=== PATIENT | female | born 1940 | race Caucasian/White ===

== ENCOUNTER 2017-01-04 15:27 | Inpatient (IN) ==
--- NOTE | 2017-01-04 16:40 | Emergency Department Note ---
Disposition Clinical Impression: Leukocytosis Disposition: Admitted As Inpatient Condition: Fair Referrals: NO,PCP [Primary Care Provider] - Forms: Work/School Release, ED Satisfaction Letter Time of Disposition: 18:00 Recheck wound or abnormal lab - General Chief Complaint: ED General Medical Stated Complaint: high blood sugar Source: patient Limitations: no limitations Nursing Notes Reviewed: Yes Vital Signs Reviewed: Yes - History of Present Illness HPI Narrative: Miss Mathias was at the urgent care today for the second time in 5 days. 5 days ago she received capMist and Bactrim for an upper respiratory infection. She went back she was feeling somewhat dizzy wondering if perhaps cap Mist was culprit. They checked her sugar there and it was 424 and sent her here to the emergency department. She was last to the doctor for a sugar check about 4 years ago for an ankle issue. No frequency of urination but the urine has been "dark" for the last few days. No dysuria. No nausea vomiting diarrhea. She is feeling otherwise fine and is here for evaluation of the sugar. She was not given any insulin at the urgent care before coming here. - Related Data Previous Rx's Medication Instructions Recorded Guaifenesin/Dm/Pseudoephedrine 1 tab PO QID #20 tablet 12/30/16 [Capmist Dm Tablet] Sulfamethoxazole/Trimeth DS 1 each PO BID #20 tablet 12/30/16 [Bactrim DS] Allergies Allergy/AdvReac Type Severity Reaction Status Date / Time No Known Allergies Allergy Verified 12/30/16 12:07 All systems ED: reviewed and negative except as stated. Review of Systems: As Per HPI Constitutional: Denies: fever, chills Eyes: Denies: vision change ENT ED: Reports: congestion. Denies: ear pain, throat pain, dysphagia Cardiovascular: Denies: chest pain, palpitations, dyspnea on exertion Respiratory: Denies: cough, dyspnea, sputum production Gastrointestinal: Denies: abdominal pain, nausea, vomiting, diarrhea, melena, hematochezia Genitourinary: Denies: urgency, dysuria, frequency, hematuria Musculoskeletal: Denies: myalgia Neurological: Denies: headache Endocrine: Denies: fatigue Past Medical History - Past Medical History Medical history: Reports: no medical history Psychiatric history: Reports: no psych history - Social History Smoking Status: Never smoker Smokeless Tobacco Status: No Alcohol use: Reports: none Drug use: Reports: none Physical Exam - General Limitations: no limitations General appearance: alert, in no apparent distress - Head Head exam: normocephalic - Eye Eye exam: Present: normal appearance. Absent: scleral icterus - ENT ENT exam: normal oropharynx, mucous membranes moist - Neck Neck exam: Present: normal inspection. Absent: lymphadenopathy - Chest Chest inspection: Present: normal inspection, symmetric chest wall rise - Respiratory Respiratory exam: Present: normal lung sounds bilaterally. Absent: respiratory distress, wheezes, stridor - Cardiovascular Cardiovascular exam: Present: regular rate, normal rhythm, normal heart sounds. Absent: systolic murmur, diastolic murmur - Abdominal Exam Abdominal exam: Present: soft, Non-Tender, normal bowel sounds. Absent: distention, guarding, rebound, rigidity Abdominal tenderness: Absent: RUQ, epigastrium - Extremities Exam Extremities exam: Present: normal inspection. Absent: pedal edema - Neurological Exam Neurological exam: Present: alert - Psychiatric Psychiatric exam: Present: normal affect, normal mood - Skin Skin exam: Present: warm, dry, intact Course Vital Signs Temperature 98.5 F 01/04/17 15:39 Pulse Rate 104 01/04/17 15:39 Respiratory Rate 18 01/04/17 15:39 Blood Pressure 134/83 01/04/17 15:39 O2 Sat by Pulse Oximetry 96 01/04/17 15:39 Temperature 98.5 F 01/04/17 15:39 Pulse Rate 104 01/04/17 15:39 Respiratory Rate 18 01/04/17 15:39 Blood Pressure 134/83 01/04/17 15:39 O2 Sat by Pulse Oximetry 96 01/04/17 15:39 Oxygen Delivery Oxygen Delivery Room Air Recheck wound or abnormal lab - [facility] Narrative Medical decision making narrative: Leukocytosis. She has not been on prednisone and has no sign of serious infection however this is markedly elevated with a left shift. No obvious findings in urine or chest x-ray to account for this. Lab abnormalities include hepatic function although she is not tender on exam in this region of her abdomen. Lactate is up somewhat as well and besides the slight increase in heart rate she appears well and is not hypotensive. We will begin empiric anabiotic's in the form of Zosyn 4.5 g every 6 hours. Blood cultures are pending at the time of this dictation. Again she appears well but it might be prudent to have her come into the hospital for empiric treatment. Hyperglycemia. 424 by report at the urgent care. By the time she got here she was in the mid 300s. After a 500 mL bolus she was down to the mid 200s without any insulin. This could be a result response to underlying infection as above. We will recheck her potassium as it was 3.8 initially. Now that the sugar has fallen I would like to ensure that it is not decreased abnormally. With admission we will check sugars before meals at bedtime and do sliding scale as needed. I discussed the case with the covering hospitalist and explored some treatment options. Initially it was thought that she could use some diabetic teaching however her sugar is beginning to resolve with just serial checks and IV hydration. He was also thought that she might benefit from some advanced imaging which we do not have here at [place] over the weekend. However she is not tender to palpation over the epigastrium or the right upper quadrant. As above we will begin empiric antibiotics and continue to monitor her here [place]. Miss Mathias is in agreement with the rationale for staying in the hospital. She is currently in good condition awaiting transfer to the floor. - Lab Data Lab results reviewed: Yes I reviewed the patient's lab results. Result diagrams: 01/04/17 16:12 01/04/17 16:12 Lab Results 01/04/17 01/04/17 01/04/17 Range/Units 15:40 16:12 16:12 WBC 21.2 H (4.3-11.1) K/mcL RBC 3.87 (3.82-4.97) M/mcL Hgb 11.5 (11.5-15.4) g/dL Hct 32.4 L (35.3-44.9) % MCV 83.7 (83.0-100.0) fL MCH 29.7 (28.0-33.3) pg MCHC 35.5 (31.6-35.5) g/dL RDW 14.3 (11.5-14.5) % Plt Count 350 (140-400) K/mcL MPV 11.2 (9.4-12.4) fL Immature Gran % 3.6 (0-4) % Seg Neutrophils % 82.8 % Lymphocytes % 7.1 % Monocytes % 6.2 % Eosinophils % 0.0 % Basophils % 0.3 % Neutrophils # 17.6 H (1.6-8.9) K/mcL Lymphocytes # 1.5 (0.6-4.6) K/mcL Monocytes # 1.3 (0.0-1.3) K/mcL Eosinophils # 0.0 (0.0-0.6) K/mcL Basophils # 0.1 (0.0-0.2) K/mcL VBG pH (7.32-7.42) pH Units VBG pCO2 (41-51) mmHg VBG pO2 (25-40) mmHg VBG HCO3 (21-27) mEq/L VBG Lactic Acid (0.5-2.2) mmol/L Sodium 129 L (136-145) mEq/L Potassium 3.8 (3.5-4.5) mEq/L Chloride 94 L (98-109) mEq/L Carbon Dioxide 23 (19-29) mEq/L BUN 18 (7-20) mg/dL Creatinine 0.91 (0.57-1.11) mg/dL Est GFR ( Amer) > 60 (> 60) Est GFR (Non-Af Amer) 60 (> 60) BUN/Creatinine Ratio 20 (6-26) Glucose 336 H (70-99) mg/dL POC Glucose 344 H (58-89) Calculated Osmolality 283 (280-300) Calcium 8.8 (8.6-10.8) mg/dL Phosphorus 2.4 (2.3-4.7) mg/dL Magnesium 1.8 (1.6-2.6) mg/dL Total Bilirubin 1.8 H (0.2-1.2) mg/dL AST 91 H (5-34) Units/L ALT 108 H (0-55) Units/L Alkaline Phosphatase 406 H (38-126) Units/L Serum Total Protein 7.2 (6.0-8.3) g/dL Albumin 1.8 L (3.5-5.0) g/dL Globulin 5.4 H (2.4-3.5) g/dL Albumin/Globulin Ratio 0.3 L (1.1-2.2) Beta-Hydroxybutyric Acd (0.02-0.27) mmol/L Urine Color (Yellow) Urine Clarity (Clear) Urine pH (5.0-8.0) pH Units Ur Specific [place] (1.010-1.025) Urine Protein (Neg-Trace) mg/dL Urine Glucose (UA) (Normal) mg/dL Urine Ketones (Negative) mg/dL Urine Blood (Negative) Urine Nitrite (Negative) Urine Bilirubin (Negative) Urine Urobilinogen (Normal) mg/dL Ur Leukocyte Esterase (Negative) Urine Microscopic RBC (0-3) per hpf Urine Microscopic WBC (0-3) per hpf Ur Squamous Epith Cells (None-Few) per lpf Urine Bacteria (None-Few) per hpf Ur Culture Indicated? (NO) 01/04/17 01/04/17 01/04/17 Range/Units 16:12 16:12 16:12 WBC (4.3-11.1) K/mcL RBC (3.82-4.97) M/mcL Hgb (11.5-15.4) g/dL Hct (35.3-44.9) % MCV (83.0-100.0) fL MCH (28.0-33.3) pg MCHC (31.6-35.5) g/dL RDW (11.5-14.5) % Plt Count (140-400) K/mcL MPV (9.4-12.4) fL Immature Gran % (0-4) % Seg Neutrophils % % Lymphocytes % % Monocytes % % Eosinophils % % Basophils % % Neutrophils # (1.6-8.9) K/mcL Lymphocytes # (0.6-4.6) K/mcL Monocytes # (0.0-1.3) K/mcL Eosinophils # (0.0-0.6) K/mcL Basophils # (0.0-0.2) K/mcL VBG pH 7.45 H (7.32-7.42) pH Units VBG pCO2 37.5 L (41-51) mmHg VBG pO2 36.4 (25-40) mmHg VBG HCO3 26.1 (21-27) mEq/L VBG Lactic Acid 3.0 H (0.5-2.2) mmol/L Sodium (136-145) mEq/L Potassium (3.5-4.5) mEq/L Chloride (98-109) mEq/L Carbon Dioxide (19-29) mEq/L BUN (7-20) mg/dL Creatinine (0.57-1.11) mg/dL Est GFR ( Amer) (> 60) Est GFR (Non-Af Amer) (> 60) BUN/Creatinine Ratio (6-26) Glucose (70-99) mg/dL POC Glucose (58-89) Calculated Osmolality (280-300) Calcium (8.6-10.8) mg/dL Phosphorus (2.3-4.7) mg/dL Magnesium (1.6-2.6) mg/dL Total Bilirubin (0.2-1.2) mg/dL AST (5-34) Units/L ALT (0-55) Units/L Alkaline Phosphatase (38-126) Units/L Serum Total Protein (6.0-8.3) g/dL Albumin (3.5-5.0) g/dL Globulin (2.4-3.5) g/dL Albumin/Globulin Ratio (1.1-2.2) Beta-Hydroxybutyric Acd 0.20 (0.02-0.27) mmol/L Urine Color (Yellow) Urine Clarity (Clear) Urine pH (5.0-8.0) pH Units Ur Specific [place] (1.010-1.025) Urine Protein (Neg-Trace) mg/dL Urine Glucose (UA) (Normal) mg/dL Urine Ketones (Negative) mg/dL Urine Blood (Negative) Urine Nitrite (Negative) Urine Bilirubin (Negative) Urine Urobilinogen (Normal) mg/dL Ur Leukocyte Esterase (Negative) Urine Microscopic RBC (0-3) per hpf Urine Microscopic WBC (0-3) per hpf Ur Squamous Epith Cells (None-Few) per lpf Urine Bacteria (None-Few) per hpf Ur Culture Indicated? (NO) 01/04/17 Range/Units 17:10 WBC (4.3-11.1) K/mcL RBC (3.82-4.97) M/mcL Hgb (11.5-15.4) g/dL Hct (35.3-44.9) % MCV (83.0-100.0) fL MCH (28.0-33.3) pg MCHC (31.6-35.5) g/dL RDW (11.5-14.5) % Plt Count (140-400) K/mcL MPV (9.4-12.4) fL Immature Gran % (0-4) % Seg Neutrophils % % Lymphocytes % % Monocytes % % Eosinophils % % Basophils % % Neutrophils # (1.6-8.9) K/mcL Lymphocytes # (0.6-4.6) K/mcL Monocytes # (0.0-1.3) K/mcL Eosinophils # (0.0-0.6) K/mcL Basophils # (0.0-0.2) K/mcL VBG pH (7.32-7.42) pH Units VBG pCO2 (41-51) mmHg VBG pO2 (25-40) mmHg VBG HCO3 (21-27) mEq/L VBG Lactic Acid (0.5-2.2) mmol/L Sodium (136-145) mEq/L Potassium (3.5-4.5) mEq/L Chloride (98-109) mEq/L Carbon Dioxide (19-29) mEq/L BUN (7-20) mg/dL Creatinine (0.57-1.11) mg/dL Est GFR ( Amer) (> 60) Est GFR (Non-Af Amer) (> 60) BUN/Creatinine Ratio (6-26) Glucose (70-99) mg/dL POC Glucose (58-89) Calculated Osmolality (280-300) Calcium (8.6-10.8) mg/dL Phosphorus (2.3-4.7) mg/dL Magnesium (1.6-2.6) mg/dL Total Bilirubin (0.2-1.2) mg/dL AST (5-34) Units/L ALT (0-55) Units/L Alkaline Phosphatase (38-126) Units/L Serum Total Protein (6.0-8.3) g/dL Albumin (3.5-5.0) g/dL Globulin (2.4-3.5) g/dL Albumin/Globulin Ratio (1.1-2.2) Beta-Hydroxybutyric Acd (0.02-0.27) mmol/L Urine Color Yellow (Yellow) Urine Clarity Slightly Cloudy A (Clear) Urine pH 5.5 (5.0-8.0) pH Units Ur Specific [place] 1.020 (1.010-1.025) Urine Protein Trace (Neg-Trace) mg/dL Urine Glucose (UA) >=1000 H (Normal) mg/dL Urine Ketones Negative (Negative) mg/dL Urine Blood Negative (Negative) Urine Nitrite Negative (Negative) Urine Bilirubin Small H (Negative) Urine Urobilinogen Normal (Normal) mg/dL Ur Leukocyte Esterase Negative (Negative) Urine Microscopic RBC 0-3 (0-3) per hpf Urine Microscopic WBC 0-3 (0-3) per hpf Ur Squamous Epith Cells Many H (None-Few) per lpf Urine Bacteria Few (None-Few) per hpf Ur Culture Indicated? NO (NO) - Radiology Data Radiology results reviewed: Yes I reviewed the patient's radiology results.
[2017-01-04 16:41] LABS: Basophils # 0.1 K/mcL (0.0-0.2); Basophils % 0.3 %; Hematocrit 32.4 % (35.3-44.9); Hemoglobin 11.5 g/dL (11.5-15.4); Immature Granulocytes % 3.6 % (0-4); Lymphocytes # 1.5 K/mcL (0.6-4.6); Lymphocytes % 7.1 %; Mean Corpuscular HGB Conc 35.5 g/dL (31.6-35.5); Mean Corpuscular Hemoglobin 29.7 pg (28.0-33.3); Mean Corpuscular Volume 83.7 fL (83.0-100.0); Mean Platelet Volume 11.2 fL (9.4-12.4); Monocytes # 1.3 K/mcL (0.0-1.3); Monocytes % 6.2 %; Platelet Count 350 K/mcL (140-400); Red Blood Count 3.87 M/mcL (3.82-4.97); Red Cell Distribution Width 14.3 % (11.5-14.5); Segmented Neutrophils % 82.8 %
[2017-01-04 16:50] LABS: Alanine Aminotransferase 108 Units/L (0-55); Albumin/Globulin Ratio 0.3 (1.1-2.2); Alkaline Phosphatase 406 Units/L (38-126); Aspartate Amino Transferase 91 Units/L (5-34); BUN/Creatinine Ratio 20 (6-26); Bilirubin,Total 1.8 mg/dL (0.2-1.2); Blood Urea Nitrogen 18 mg/dL (7-20); Calcium 8.8 mg/dL (8.6-10.8); Carbon Dioxide 23 mEq/L (19-29); Chloride 94 mEq/L (98-109); Globulin 5.4 g/dL (2.4-3.5); Glucose 336 mg/dL (70-99); Magnesium 1.8 mg/dL (1.6-2.6); Osmolality,Calculated 283 (280-300); Phosphorous 2.4 mg/dL (2.3-4.7); Potassium 3.8 mEq/L (3.5-4.5); Sodium 129 mEq/L (136-145); Total Protein 7.2 g/dL (6.0-8.3); eGFR For African Americans > 60 (> 60); eGFR For Non-African Americans 60 (> 60)
[2017-01-04 16:51] LABS: VBG HCO3 26.1 mEq/L (21-27); VBG PCO2 37.5 mmHg (41-51); VBG PH 7.45 pH Units (7.32-7.42); VBG PO2 36.4 mmHg (25-40)
[2017-01-04] MEDS ORDERED: 0.9 % Sodium Chloride 500 ML IVC ONE (16:55)
[2017-01-04 16:58] LABS: Neutrophils # 17.6 K/mcL (1.6-8.9)
[2017-01-04 16:59] LABS: Albumin 1.8 g/dL (3.5-5.0)
[2017-01-04 17:25] LABS: Bilirubin,Urine Small (Negative); Blood,Urine Negative (Negative); Clarity,Urine Slightly Cloudy (Clear); Color,Urine Yellow (Yellow); Glucose,Urine (UA) >=1000 mg/dL (Normal); Ketones,Urine Negative (Negative); Leukocyte Esterase,Urine Negative (Negative); Nitrite,Urine Negative (Negative); PH,Urine 5.5 pH Units (5.0-8.0); Protein,Urine Trace mg/dL (Neg-Trace); Urobilinogen,Urine Normal (Normal)
[2017-01-04 17:36] LABS: Bacteria,Urine Few per hpf (None-Few); RBC,Urine 0-3 per hpf (0-3); Squamous Epithelial Cell,Urine Many per lpf (None-Few); WBC,Urine 0-3 per hpf (0-3)
[2017-01-04] MEDS ORDERED: Piperacillin/Tazobactam 4.5 GM in D5% in Water (Mini-Bag+) 100 ML IVPB ONE ×2 (18:45→19:13)
[2017-01-04 19:05] LABS: Amylase 32 Units/L (25-125); Lipase 26 Units/L (8-78)
[2017-01-04] MEDS ORDERED: Ibuprofen 400 MG TABLET PO PRN (19:13)
[2017-01-04] MEDS ORDERED: Naloxone 0.4 MG/ML INJ IVP PRN (19:13)
[2017-01-04] MEDS ORDERED: *HR* Enoxaparin 40 MG/0.4 ML SYRINGE SQ ONE (19:13)
[2017-01-04] MEDS ORDERED: Ondansetron 4 MG/2 ML VIAL IVP PRN (19:13)
[2017-01-04] MEDS ORDERED: MOM Conc 10 ML UD.LIQ PO PRN (19:13)
[2017-01-04] MEDS ORDERED: Dextrose Gel 15 GM PO PRN ×2 (19:54)
[2017-01-04] MEDS ORDERED: D5% in Water 1,000 ML IVC PRN (19:54)
[2017-01-04] MEDS ORDERED: *HR* Dextrose 50 % in Water (Syg) 50 ML SYRINGE IVP PRN (19:54)
[2017-01-04] MEDS: 0.9 % Sodium Chloride 1,000 ML IVC SCH (20:35)
[2017-01-04 20:53] LABS: BUN/Creatinine Ratio 21 (6-26); Blood Urea Nitrogen 16 mg/dL (7-20); Calcium 8.1 mg/dL (8.6-10.8); Carbon Dioxide 22 mEq/L (19-29); Chloride 98 mEq/L (98-109); Glucose 248 mg/dL (70-99); Osmolality,Calculated 277 (280-300); Potassium 3.5 mEq/L (3.5-4.5); Sodium 129 mEq/L (136-145); eGFR For African Americans > 60 (> 60); eGFR For Non-African Americans > 60 (> 60)
[2017-01-04] MEDS: Insulin LISPRO 300 UNITS/3 ML VIAL SQ SCH (22:57)
[2017-01-05] MEDS: Piperacillin/Tazobactam 3.375 GM in D5% in Water (Mini-Bag+) 100 ML IVPB SCH ×3 (03:03→18:42)
[2017-01-05 05:33] LABS: Basophils # 0.1 K/mcL (0.0-0.2); Basophils % 0.3 %; Eosinophils % 0.2 %; Hemoglobin 8.9 g/dL (11.5-15.4); Immature Granulocytes % 2.8 % (0-4); Lymphocytes # 1.7 K/mcL (0.6-4.6); Lymphocytes % 9.2 %; Mean Corpuscular HGB Conc 35.6 g/dL (31.6-35.5); Mean Corpuscular Hemoglobin 29.5 pg (28.0-33.3); Mean Corpuscular Volume 82.8 fL (83.0-100.0); Monocytes # 1.4 K/mcL (0.0-1.3); Monocytes % 7.2 %; Neutrophils # 15.2 K/mcL (1.6-8.9); Platelet Count 319 K/mcL (140-400); Red Blood Count 3.02 M/mcL (3.82-4.97); Segmented Neutrophils % 80.3 %
[2017-01-05 05:45] LABS: Alanine Aminotransferase 82 Units/L (0-55); Albumin/Globulin Ratio 0.3 (1.1-2.2); Alkaline Phosphatase 326 Units/L (38-126); Aspartate Amino Transferase 79 Units/L (5-34); BUN/Creatinine Ratio 23 (6-26); Bilirubin,Total 1.6 mg/dL (0.2-1.2); Blood Urea Nitrogen 17 mg/dL (7-20); Calcium 7.6 mg/dL (8.6-10.8); Carbon Dioxide 22 mEq/L (19-29); Chloride 100 mEq/L (98-109); Globulin 4.4 g/dL (2.4-3.5); Glucose 194 mg/dL (70-99); Osmolality,Calculated 279 (280-300); Potassium 3.7 mEq/L (3.5-4.5); Sodium 131 mEq/L (136-145); Total Protein 5.9 g/dL (6.0-8.3); eGFR For African Americans > 60 (> 60); eGFR For Non-African Americans > 60 (> 60)
[2017-01-05 05:56] LABS: Albumin 1.5 g/dL (3.5-5.0)
[2017-01-05] MEDS: 0.9 % Sodium Chloride 1,000 ML IVC SCH (07:50)
[2017-01-05] MEDS: Insulin LISPRO 300 UNITS/3 ML VIAL SQ SCH ×4 (08:54→20:37)
--- NOTE | 2017-01-05 13:54 | Internal Med History&Physical ---
Date of Encounter: 02/19/17 Time of Encounter: 13:51 Assessment and Plan (1) Hyperglycemia Status: Inactive No low diabetes which is being addressed. A1c is spent (2) Dizziness Status: Inactive Clear about the dizziness was related to orthostasis or what we will follow (3) Leukocytosis Status: Acute And white count coming down off follow the Qualifiers: Leukocytosis type: unspecified Qualified Code(s): D72.829 - Elevated white blood cell count, unspecified Internal Medicine - H&P: HPI Chief complaint: Lo/Ovral diabetes Admitted From: Emergency Dept Plans for Post Hospital Care: Home History of present illness: Ms. Mathias is a 76 year old female She will had high blood sugars and a routine check in the emergency room. The patient was unaware of being diabetic or having problems with blood sugars. She was admitted so we can educator start on medication and then set up follow- up appointments as appropriate and get her primary care physician which she does not have Past Med Surg Social Fam HX - Past Medical History Medical history: no medical history Psychiatric history: no psych history - Past Surgical History Surgical History: , cholecystectomy, orthopedic, other - Social History Smoking Status: Never smoker Smokeless Tobacco Status: No Alcohol use: none Drug use: none - Family History Mother History Unknown: Yes Father History Unknown: Yes Internal Medicine - H&P: Meds Guaifenesin/Dm/Pseudoephedrine [Capmist Dm Tablet] 1 tab PO QID #20 tablet 12/30 [Rx] Sulfamethoxazole/Trimeth DS [Bactrim DS] 1 each PO BID #20 tablet 12/30/16 [Rx] Multivitamin [Multi-Day Vitamins] 1 each PO DAILY 01/05/17 [History] 3 Allergy/AdvReac Type Severity Reaction Status Date / Time No Known Allergies Allergy Verified 12/30/16 12:07 All Systems PM: A 10-system review of systems was performed and is negative for pertinent findings except as documented above in the HPI. - Constitutional Vitals: Temp Pulse Resp BP Pulse Ox 98.6 F 101 17 157/69 96 01/05/17 11:53 01/05/17 11:53 01/05/17 11:53 01/05/17 11:53 01/05/17 11:53 - Head Head exam: Present: atraumatic, normocephalic - Respiratory Respiratory exam: Present: CTAB. Absent: accessory muscle use, rales, rhonchi, wheezes - Cardiovascular Cardiovascular exam: Present: RRR, +S1, +S2. Absent: diastolic murmur, gallop, rubs, systolic murmur - GI/Abdominal GI/Abdominal exam: Present: normal bowel sounds, soft, no peritoneal signs. Absent: distended, tenderness Internal Med - H&P Results - Labs CBC & Chem 7: 01/07/17 05:05 01/07/17 05:05 Labs: Short CBC 01/05/17 Range/Units 04:50 WBC 18.9 H (4.3-11.1) K/mcL Hgb 8.9 L D (11.5-15.4) g/dL Hct 25.0 L (35.3-44.9) % Plt Count 319 (140-400) K/mcL Neutrophils # 15.2 H (1.6-8.9) K/mcL BMP 01/04/17 01/05/17 20:30 04:50 Sodium 129 L 131 L Potassium 3.5 3.7 Chloride 98 100 Carbon Dioxide 22 22 BUN 16 17 Creatinine 0.75 0.75 Glucose 248 H 194 H Calcium 8.1 L 7.6 L Liver Function 01/05/17 Range/Units 04:50 Total Bilirubin 1.6 H (0.2-1.2) mg/dL AST 79 H (5-34) Units/L ALT 82 H (0-55) Units/L Alkaline Phosphatase 326 H (38-126) Units/L Albumin 1.5 L (3.5-5.0) g/dL Patient is somewhat anemic and her white count was up this morning's is down about 3000. Sodium Sulo I think these are all dilutional here and then we will follow her white count. In addition her blood sugar this morning last night was 248 this morning was 194 and medications been started. She had total bilirubin that was somewhat elevated and AST that is mildly elevated disablement ALT alkaline phosphatase is up in the albumin is low. Patient does not have a gallbladder.
[2017-01-05] MEDS: *HR* Metformin 500 MG TABLET PO SCH (16:55)
[2017-01-06] MEDS: Piperacillin/Tazobactam 3.375 GM in D5% in Water (Mini-Bag+) 100 ML IVPB SCH ×3 (03:39→20:34)
[2017-01-06] MEDS: *HR* Enoxaparin 40 MG/0.4 ML SYRINGE SQ SCH (05:34)
[2017-01-06 05:41] LABS: Basophils % 0.2 %; Eosinophils # 0.1 K/mcL (0.0-0.6); Eosinophils % 0.4 %; Hematocrit 25.7 % (35.3-44.9); Immature Granulocytes % 3.1 % (0-4); Lymphocytes # 1.9 K/mcL (0.6-4.6); Lymphocytes % 9.4 %; Mean Corpuscular Hemoglobin 29.3 pg (28.0-33.3); Mean Corpuscular Volume 83.7 fL (83.0-100.0); Mean Platelet Volume 10.5 fL (9.4-12.4); Monocytes # 1.5 K/mcL (0.0-1.3); Monocytes % 7.4 %; Neutrophils # 15.9 K/mcL (1.6-8.9); Platelet Count 358 K/mcL (140-400); Red Blood Count 3.07 M/mcL (3.82-4.97); Red Cell Distribution Width 14.5 % (11.5-14.5); Segmented Neutrophils % 79.5 %
[2017-01-06 06:31] LABS: BUN/Creatinine Ratio 18 (6-26); Blood Urea Nitrogen 13 mg/dL (7-20); Carbon Dioxide 22 mEq/L (19-29); Chloride 102 mEq/L (98-109); Glucose 184 mg/dL (70-99); Osmolality,Calculated 275 (280-300); Potassium 3.9 mEq/L (3.5-4.5); Sodium 130 mEq/L (136-145); eGFR For African Americans > 60 (> 60); eGFR For Non-African Americans > 60 (> 60)
[2017-01-06] MEDS: Insulin LISPRO 300 UNITS/3 ML VIAL SQ SCH ×4 (07:51→20:45)
[2017-01-06] MEDS: *HR* Metformin 500 MG TABLET PO SCH ×2 (07:53→17:06)
[2017-01-06] MEDS: 0.9 % Sodium Chloride 1,000 ML IVC SCH (07:59)
--- NOTE | 2017-01-06 11:35 | Internal Med Progress Note ---
Date of Encounter: 02/19/17 Time of Encounter: 11:33 - Assessment and plan (1) Leukocytosis Status: Acute Assessment and plan: Follow-up lab in the a.m. Qualifiers: Leukocytosis type: unspecified Qualified Code(s): D72.829 - Elevated white blood cell count, unspecified - Time Spent With Patient less than 15 minutes - Constitutional Vitals: Temp Pulse Resp BP Pulse Ox 99.1 F 86 20 150/67 96 01/06/17 07:19 01/06/17 07:19 01/06/17 07:19 01/06/17 07:19 01/06/17 07:19 - Head Head exam: Present: atraumatic, normal inspection, normocephalic - Neck Neck exam general surgery: Present: supple, trachea midline. Absent: lymphadenopathy - Respiratory Respiratory exam: Present: CTAB. Absent: accessory muscle use, rales, rhonchi, wheezes - Cardiovascular Cardiovascular exam: Present: RRR, +S1, +S2. Absent: diastolic murmur, gallop, rubs, systolic murmur Internal Medicine: Result - Labs CBC & Chem 7: 01/07/17 05:05 01/07/17 05:05 Labs: Short CBC 01/06/17 Range/Units 05:20 WBC 20.0 H (4.3-11.1) K/mcL Hgb 9.0 L (11.5-15.4) g/dL Hct 25.7 L (35.3-44.9) % Plt Count 358 (140-400) K/mcL Neutrophils # 15.9 H (1.6-8.9) K/mcL BMP 01/06/17 05:20 Sodium 130 L Potassium 3.9 Chloride 102 Carbon Dioxide 22 BUN 13 Creatinine 0.71 Glucose 184 H Calcium 8.0 L Labs stable Consult Discharge Plan - Plan Instructions: Diabetes Insipidus (DC) Additional Instructions: [facility] will call to schedule diabetic education Referrals: Wei Botello MD [Non-Partnered Physician] - 01/17/17 3:00 pm (Please arrive 15 minutes early to comlete new patient packet. )
[2017-01-06 18:01] LABS: Hemoglobin A1C 7.8 %
[2017-01-07] MEDS: Piperacillin/Tazobactam 3.375 GM in D5% in Water (Mini-Bag+) 100 ML IVPB SCH ×2 (04:46→11:45)
[2017-01-07] MEDS: *HR* Enoxaparin 40 MG/0.4 ML SYRINGE SQ SCH (05:37)
[2017-01-07 05:45] LABS: Basophils % 0.2 %; Eosinophils # 0.1 K/mcL (0.0-0.6); Eosinophils % 0.4 %; Hematocrit 26.7 % (35.3-44.9); Hemoglobin 9.4 g/dL (11.5-15.4); Immature Granulocytes % 2.7 % (0-4); Lymphocytes # 2.3 K/mcL (0.6-4.6); Lymphocytes % 11.3 %; Mean Corpuscular HGB Conc 35.2 g/dL (31.6-35.5); Mean Corpuscular Hemoglobin 29.6 pg (28.0-33.3); Mean Platelet Volume 10.5 fL (9.4-12.4); Monocytes # 1.5 K/mcL (0.0-1.3); Monocytes % 7.2 %; Platelet Count 427 K/mcL (140-400); Red Blood Count 3.18 M/mcL (3.82-4.97); Segmented Neutrophils % 78.2 %
[2017-01-07 05:52] LABS: BUN/Creatinine Ratio 18 (6-26); Blood Urea Nitrogen 12 mg/dL (7-20); Calcium 8.5 mg/dL (8.6-10.8); Carbon Dioxide 22 mEq/L (19-29); Chloride 101 mEq/L (98-109); Glucose 165 mg/dL (70-99); Osmolality,Calculated 275 (280-300); Sodium 131 mEq/L (136-145); eGFR For African Americans > 60 (> 60); eGFR For Non-African Americans > 60 (> 60)
[2017-01-07] MEDS: *HR* Metformin 500 MG TABLET PO SCH ×2 (08:21→17:09)
[2017-01-07] MEDS: Insulin LISPRO 300 UNITS/3 ML VIAL SQ SCH ×4 (08:26→20:36)
[2017-01-07] MEDS ORDERED: Piperacillin/Tazobactam 3.375 GM in D5% in Water (Mini-Bag+) 100 ML IVPB SCH (11:00)
[2017-01-07 16:35] LABS: Bilirubin,Urine Small (Negative); Blood,Urine Negative (Negative); Clarity,Urine Clear (Clear); Color,Urine Yellow (Yellow); Glucose,Urine (UA) Normal (Normal); Ketones,Urine Trace mg/dL (Negative); Leukocyte Esterase,Urine Negative (Negative); Nitrite,Urine Negative (Negative); Protein,Urine 30 mg/dL (Neg-Trace); Urobilinogen,Urine Normal (Normal)
[2017-01-07 16:44] LABS: Bacteria,Urine Many per hpf (None-Few); Squamous Epithelial Cell,Urine Many per lpf (None-Few); WBC,Urine 0-3 per hpf (0-3); Yeast,Urine Few per hpf (None Seen)
[2017-01-08] MEDS: *HR* Enoxaparin 40 MG/0.4 ML SYRINGE SQ SCH (05:44)
[2017-01-08] MEDS: Insulin LISPRO 300 UNITS/3 ML VIAL SQ SCH ×3 (08:10→17:40)
[2017-01-08] MEDS: *HR* Metformin 500 MG TABLET PO SCH ×2 (13:11→17:26)
[2017-01-09] MEDS: Insulin LISPRO 300 UNITS/3 ML VIAL SQ SCH ×5 (01:20→21:02)
[2017-01-09] MEDS: *HR* Enoxaparin 40 MG/0.4 ML SYRINGE SQ SCH (05:35)
--- NOTE | 2017-01-09 13:26 | Internal Med Progress Note ---
Date of Encounter: 01/07/17 Time of Encounter: 13:00 - Assessment and plan (1) Hyperglycemia Current Visit: Yes Status: Acute Assessment and plan: Blood sugars are slowly improving. (2) Dizziness Current Visit: No Status: Acute Assessment and plan: This issue seems resolved (3) Leukocytosis Current Visit: Yes Status: Acute Assessment and plan: See above Qualifiers: Leukocytosis type: unspecified Qualified Code(s): D72.829 - Elevated white blood cell count, unspecified - Time Spent With Patient less than 15 minutes - Subjective Interval history: Blood sugars are coming along our the patient persists in having white count. I will order LFTs are abnormal. This would be pursued tomorrow getting an ultrasound of the liver - Constitutional Vitals: Temp Pulse Resp BP Pulse Ox 97.9 F 85 16 107/74 96 01/09/17 11:48 01/09/17 11:48 01/09/17 11:48 01/09/17 11:48 01/09/17 11:48 - Head Head exam: Present: atraumatic, normal inspection, normocephalic - Respiratory Respiratory exam: Present: CTAB. Absent: accessory muscle use, rales, rhonchi, wheezes - Cardiovascular Cardiovascular exam: Present: RRR, +S1, +S2. Absent: diastolic murmur, gallop, rubs, systolic murmur Internal Medicine: Result - Labs CBC & Chem 7: 01/07/17 05:05 01/07/17 05:05 Labs: There white count still persist 20,000 mentioned above. - VTE Reasons for not Prescribing Prophylaxis: Treatment not Indicated - Low risk for VTE Consult Discharge Plan - Plan Additional Instructions: [facility] will call to schedule diabetic education Referrals: Lalo Hicks, SLIP TENDER [Non-Partnered Physician] - 01/15/17 8:00 am (office will send new patient packet, call office at least 1 day in advance to cancel or reschedule) NO,PCP [Primary Care Provider] -
--- NOTE | 2017-01-09 13:29 | Internal Med Progress Note ---
Date of Encounter: 01/08/17 Time of Encounter: 13:00 - Assessment and plan (1) Hyperglycemia Current Visit: Yes Status: Acute Assessment and plan: Sugars are coming along occasional labile (2) Dizziness Current Visit: No Status: Acute Assessment and plan: Reports of vertigo (3) Leukocytosis Current Visit: Yes Status: Acute Assessment and plan: The above Qualifiers: Leukocytosis type: unspecified Qualified Code(s): D72.829 - Elevated white blood cell count, unspecified - Time Spent With Patient less than 15 minutes - Subjective Interval history: Patient had abnormal changes in the central liver and going now do a CT scan with contrast - Constitutional Vitals: Temp Pulse Resp BP Pulse Ox 97.9 F 85 16 107/74 96 01/09/17 11:48 01/09/17 11:48 01/09/17 11:48 01/09/17 11:48 01/09/17 11:48 - Head Head exam: Present: atraumatic, normocephalic - Neck Neck exam general surgery: Present: supple, trachea midline. Absent: lymphadenopathy - Respiratory Respiratory exam: Present: CTAB. Absent: accessory muscle use, rales, rhonchi, wheezes - Cardiovascular Cardiovascular exam: Present: RRR, +S1, +S2. Absent: diastolic murmur, gallop, rubs, systolic murmur Internal Medicine: Result - Labs CBC & Chem 7: 01/07/17 05:05 01/07/17 05:05 Labs: White count is being addressed - VTE Reasons for not Prescribing Prophylaxis: Treatment not Indicated - Low risk for VTE Consult Discharge Plan - Plan Additional Instructions: [facility] will call to schedule diabetic education Referrals: Lalo Hicks, SPECIAL EDUCATION SUPERVISOR [Non-Partnered Physician] - 01/15/17 8:00 am (office will send new patient packet, call office at least 1 day in advance to cancel or reschedule) NO,PCP [Primary Care Provider] -
--- NOTE | 2017-01-09 13:31 | Internal Med Progress Note ---
Date of Encounter: 01/09/17 Time of Encounter: 13:29 - Assessment and plan (1) Hyperglycemia Current Visit: Yes Status: Acute Assessment and plan: Much improved (2) Leukocytosis Current Visit: Yes Status: Resolved Assessment and plan: This followed up Qualifiers: Leukocytosis type: unspecified Qualified Code(s): D72.829 - Elevated white blood cell count, unspecified - Time Spent With Patient less than 15 minutes - Subjective Interval history: CAT scan was abnormal only area in the central liver septated. There is a possibility along with her previous low-grade fever and white count of it being a liver abscess. Surrounding area showed no adenopathy so right now indexes suspicion for malignancy is low - Constitutional Vitals: Temp Pulse Resp BP Pulse Ox 97.9 F 85 16 107/74 96 01/09/17 11:48 01/09/17 11:48 01/09/17 11:48 01/09/17 11:48 01/09/17 11:48 - Head Head exam: Present: atraumatic, normal inspection, normocephalic - Neck Neck exam general surgery: Present: supple, trachea midline. Absent: lymphadenopathy - Respiratory Respiratory exam: Present: CTAB. Absent: accessory muscle use, rales, rhonchi, wheezes - Cardiovascular Cardiovascular exam: Present: RRR, +S1, +S2. Absent: diastolic murmur, gallop, rubs, systolic murmur - GI/Abdominal GI/Abdominal exam: Present: normal bowel sounds, soft, no peritoneal signs. Absent: distended, tenderness Internal Medicine: Result - Labs CBC & Chem 7: 01/07/17 05:05 01/07/17 05:05 Labs: White count being explored - VTE Reasons for not Prescribing Prophylaxis: Treatment not Indicated - Low risk for VTE Consult Discharge Plan - Plan Additional Instructions: [facility] will call to schedule diabetic education Referrals: Lalo Hicks COIL WINDER REPAIR [Non-Partnered Physician] - 01/15/17 8:00 am (office will send new patient packet, call office at least 1 day in advance to cancel or reschedule) NO,PCP [Primary Care Provider] -
[2017-01-10] MEDS: *HR* Enoxaparin 40 MG/0.4 ML SYRINGE SQ SCH (06:20)
[2017-01-10 07:06] VITALS: BP 147/76
[2017-01-10] MEDS: Insulin LISPRO 300 UNITS/3 ML VIAL SQ SCH ×2 (08:38→11:56)
--- NOTE | 2017-01-10 15:00 | Discharge Summary ---
Date of Encounter: 01/10/17 Time of Encounter: 14:57 - Discharge Diagnosis (1) Hyperglycemia Priority: Primary Status: Acute Comments: Watch her blood sugars are coming down and she will have to have an adjustment of her medical (2) Leukocytosis Priority: Secondary Status: Acute Comments: Found possible liver abscess and this could be the cause of leukocytosis. Casey inman calling gastroenterology consider a biopsy through invasive radiology. Qualifiers: Leukocytosis type: unspecified Qualified Code(s): D72.829 - Elevated white blood cell count, unspecified (3) Abnormal LFTs (liver function tests) Priority: Secondary Status: Acute (4) Liver mass Priority: Primary Status: Acute - Discharge Medications Home Medications: Guaifenesin/Dm/Pseudoephedrine [Capmist Dm Tablet] 1 tab PO QID #20 tablet 12/30 [Rx] Sulfamethoxazole/Trimeth DS [Bactrim DS] 1 each PO BID #20 tablet 12/30/16 [Rx] Multivitamin [Multi-Day Vitamins] 1 each PO DAILY 01/05/17 [History] Allergies/Adverse Reactions: Allergies No Known Allergies Allergy (Verified 12/30/16 12:07) Date of admission: 01/08/17 13:33 Primary care physician: PCP NO Discharging clinician: Alexander Claros Anticipated date of discharge: 01/10/17 - Patient Status Disposition: Home, Self-Care Condition: Good Functional capacity at discharge: independent ambulation Overall status at discharge: patient is progressing back to baseline - Discharge Instructions Follow Up With: Wei Botello MD [Non-Partnered Physician] - 01/17/17 3:00 pm (Please arrive 15 minutes early to comlete new patient packet. ) Additional Instructions: [facility] will call to schedule diabetic education - Diet and Activity Activity: increase activity as tolerated Diet: advance to your usual diet, diabetic diet Interval History: Patient has done well. She is gone along with all the testing we also have set up with the dietitian and as an outpatient she now has a primary care physician. [facility] physician and primary care Hospital course: Ms. Mathias is a 76 year old female If in the emergency room for hyperglycemia. In addition I was working up leukocytosis and low-grade temperature. The liver ultrasound because she had abnormal LFTs. I then did a CT scan which shows a septated mass in the liver. This could be a liver abscess. The deserves further workup which will do as an outpatient. - Time Spent with Patient Total time spent providing and/or coordinating discharge services: Greater than 30 minutes - Constitutional Vitals: Temp Pulse Resp BP Pulse Ox 97.0 F L 100 18 147/76 95 01/10/17 07:05 01/10/17 07:05 01/10/17 07:05 01/10/17 07:05 01/10/17 07:05 - Head Head exam: Present: atraumatic, normocephalic - Neck Neck exam general surgery: Present: supple, trachea midline. Absent: lymphadenopathy - Respiratory Respiratory exam: Present: CTAB. Absent: accessory muscle use, rales, rhonchi, wheezes - Cardiovascular Cardiovascular exam: Present: RRR, +S1, +S2. Absent: diastolic murmur, gallop, rubs, systolic murmur - GI/Abdominal GI/Abdominal exam: Present: normal bowel sounds, soft, no peritoneal signs. Absent: distended, tenderness - VTE Reasons for not Prescribing Prophylaxis: Treatment not Indicated - Low risk for VTE
== END 2017-01-10 15:45 | disposition home or self-care (01) | DRG 639 ==
LOC: INPGRE 15:27 → EMEROOGRE 15:27 → INPGRE 19:45
PROVIDERS: ADMIT Internal Medicine; ATTEND Internal Medicine